=== PATIENT | male | born 1970 | race Caucasian/White ===

== ENCOUNTER 2016-11-06 17:50 | Emergency (ER) | payer OTHER ==
[2016-11-06 22:43] VITALS: BP 129/92
--- NOTE | 2016-11-07 01:10 | ED ---
Lei Lara Angela, scribed for Yadira Lau MD on 11/06/16 at 2212 . Complex/Multi-Sys Presentation - HPI Summary HPI Summary: This pt is a 46 y/o male presenting [facility] c/o confusion since 900 AM today s/ p liquid nitrogen exposure. Pt reports that he works as a [employer] at [place] and was working indoors on a lock with liquid nitrogen in the surrounding. Pt states that he was having trouble fixing a lock and noticed increased confusion. He notes that he was in the room for about 7 hours, from 0800 to 1200 and then from 1300 to 1600 today. Pt reports feeling better now. PMHx: HTN , asthma, anxiety. - History Of Current Complaint Chief Complaint: EDGeneral Time Seen by Provider: 11/06/16 21:40 Hx Obtained From: Patient Onset/Duration: Sudden Onset - s/p liquid nitrogen exposure Timing: Constant Associated Signs And Symptoms: Positive: Confusion. Negative: SOB, Cough, Nausea, Vomiting, Diarrhea - Allergies/Home Medications Allergies/Adverse Reactions: Allergies Allergy/AdvReac Type Severity Reaction Status Date / Time Ibuprofen Allergy See Comment Verified 11/06/16 21:46 PMH/Surg Hx/FS Hx/Imm Hx Cardiovascular History: Reports: Hx Hypertension Respiratory History: Reports: Hx Asthma Psychiatric History: Reports: Hx Anxiety - Immunization History Date of Tetanus Vaccine: unk Date of Influenza Vaccine: none Infectious Disease History: Yes Infectious Disease History: Denies: Traveled Outside the [place] in Last 30 Days - Family History Known Family History: Positive: Hypertension - Social History Occupation: Employed Full-time - [employer] at [place] Lives: With Family - Alcohol Use: Rare Substance Use Type: Reports: None Smoking Status (MU): Never Smoked Tobacco Review of Systems Negative: Fever, Chills Negative: Photophobia, Blurred Vision ENT: Negative Negative: Palpitations, Chest Pain Negative: Shortness Of Breath, Cough Gastrointestinal: Negative Genitourinary: Negative Musculoskeletal: Negative Skin: Negative Neurological: Other - confusion All Other Systems Reviewed And Are Negative: Yes Physical Exam Triage Information Reviewed: Yes Vital Signs On Initial Exam: Initial Vitals Temp Pulse Resp BP Pulse Ox 98.7 F 97 16 147/99 98 11/06/16 18:32 11/06/16 18:32 11/06/16 18:32 11/06/16 18:32 11/06/16 18:32 Vital Signs Reviewed: Yes Appearance: Positive: Well-Appearing, No Pain Distress Skin: Positive: Warm, Skin Color Reflects Adequate Perfusion, Dry Eyes: Positive: EOMI, BREANNA ENT: Positive: Pharynx normal, TMs normal Neck: Positive: Supple, Nontender Respiratory/Lung Sounds: Positive: Clear to Auscultation, Breath Sounds Present. Negative: Rales, Rhonchi, Wheezes Cardiovascular: Positive: RRR. Negative: Murmur, Rub, Other - gallop Abdomen Description: Positive: Nontender, Soft. Negative: Distended, Guarding, Other: - rebound Musculoskeletal: Positive: Strength/ROM Intact. Negative: Edema Left, Edema Right Neurological: Positive: Sensory/Motor Intact, Alert, Oriented to Person Place, Time, CN Intact II-III Psychiatric: Positive: Affect/Mood Appropriate - [place] Coma Scale Coma Scale Total: 15 Diagnostics - Vital Signs Vital Signs Temp Pulse Resp BP Pulse Ox 11/06/16 21:43 98.5 F 79 16 132/93 98 11/06/16 21:14 97.9 F 82 16 140/94 96 11/06/16 19:02 98.5 F 91 14 132/95 97 11/06/16 18:32 98.7 F 97 16 147/99 98 - Laboratory Lab Statement: Any lab studies that have been ordered have been reviewed, and results considered in the medical decision making process. Complex Multi-Symp Course/Dx Course Of Treatment: 46 yo male exposed for 7 hours to nitrogen gas, with some confusion during the day that has resolved. CAse was discussed with poison control who described the gas as a simple asphyxiant and that as long as symptoms had resolved pt was safe to go home. pt was well appearing with stable vital signs - Diagnoses Provider Diagnoses: asphyxia from exposure Discharge - Discharge Plan Condition: Stable Disposition: HOME Patient Education Materials: Acute Delirium (ED) Referrals: Vini Yuan MD [Primary Care Provider] - The documentation as recorded by the Lei membreno Angela accurately reflects the service I personally performed and the decisions made by me, Yadira Lau MD.
== END 2016-11-06 22:42 | disposition home or self-care (01) ==
LOC: ED 17:50
DX: R41.0 Disorientation, unspecified (principal); R09.01 Asphyxia; Z86.79 Personal history of other diseases of the circulatory system
CPT/HCPCS: 99282

== ENCOUNTER 2017-01-28 11:51 | Emergency (ER) | payer BC, OTHER ==
[2017-01-28 12:41] LABS: Hematocrit 42 % (42-52); Hemoglobin 14.2 g/dl (14.0-18.0); Mean Corpuscular HGB Conc 34 g/dl (31-36); Mean Corpuscular Hemoglobin 31 pg (27-31); Mean Corpuscular Volume 90 fL (80-94); Mean Platelet Volume 6 um3 (7.4-10.4); Red Blood Count 4.62 10^6/ul (4.0-5.4); Red Cell Distribution Width 13 % (10.5-15); White Blood Count 11.9 10^3/ul (3.5-10.8)
[2017-01-28 13:03] LABS: Albumin 4.3 g/dL (3.2-5.2); Calcium 9.3 mg/dL (8.6-10.3); EGFR African American 132.5 (>60); Total Bilirubin 0.5 mg/dL (0.2-1.0); Total Protein 7.3 g/dL (6.4-8.9)
--- NOTE | 2017-01-28 13:27 | RAD ---
HISTORY: Chest pain COMPARISONS: November 01, 2012 VIEWS: 4: Frontal dual-energy and lateral views of the chest. FINDINGS: CARDIOMEDIASTINAL SILHOUETTE: The cardiomediastinal silhouette is normal. MELLY: The melly are normal. PLEURA: The costophrenic angles are sharp. No pleural abnormalities are noted. LUNG PARENCHYMA: The lungs are clear. ABDOMEN: The upper abdomen is clear. There is no subphrenic gas. BONES AND SOFT TISSUES: No bone or soft tissue abnormalities are noted. OTHER: None. IMPRESSION: NO ACTIVE CARDIOPULMONARY DISEASE.
[2017-01-28 13:34] LABS: T4 5.64 mcg/mL (6.09-12.23)
[2017-01-28 13:37] LABS: TSH (Thyroid Stimulating Horm) 2.45 mcIU/mL (0.34-5.60)
[2017-01-28 16:24] VITALS: BP 119/80
--- NOTE | 2017-01-29 08:29 | ED ---
Lei Lara Angela, scribed for Wali Ralph MD on 01/28/17 at 1223 . HPI Chest Pain - HPI Summary HPI Summary: This pt is a 46 y/o male [facility] c/o chest pain since today at 10: 30. Pt reports that for the last 4 days he has been experiencing tingling of fingers on left hand. Pt describes his chest pain as an ache and non-radiating. 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 He rates his pain 4/10 in severity. Pt denies nausea, vomiting, diaphoresis, SOB. Pt states he has never had this pain before. PMHx includes asthma, allergies, HTN. He denies any cardiac problems. Pt notes he recently began anti-hypertensive medications 1 week ago. - History of Current Complaint Chief Complaint: EDChestPainROMI Time Seen by Provider: 01/28/17 12:15 Hx Obtained From: Patient Onset/Duration: Started Hours Ago, Atraumatic, Still Present Time of Onset: 10:30 Timing: Constant, Lasting Hours Current Severity: Moderate Pain Intensity: 4 Pain Scale Used: 0-10 Numeric Chest Pain Location: Diffuse Chest Pain Radiates: No Character: Dull/Aching - ache Associated Signs and Symptoms: Positive: Tingling - in left fingers.. Negative : Shortness of Breath, Diaphoresis, Nausea, Vomiting - Allergy/Home Medications Allergies/Adverse Reactions: Allergies Allergy/AdvReac Type Severity Reaction Status Date / Time Ibuprofen Allergy See Comment Verified 11/06/16 21:46 Home Medications: Home Medications Acyclovir* [Zovirax 400 MG TAB*] 400 mg PO DAILY 01/28/17 [History Confirmed 08/09] Loratadine & Pseudoephedrine [Claritin-D 24 Hour 10-240 mg] 1 tab PO DAILY 01/28 [History Confirmed 01/28/17] Ramipril CAP* [Altace CAP*] 1.25 mg PO DAILY 01/28/17 [History Confirmed ] PMH/Surg Hx/FS Hx/Imm Hx Endocrine/Hematology History: Denies: Hx Diabetes Cardiovascular History: Reports: Hx Hypertension Respiratory History: Reports: Hx Asthma Psychiatric History: Reports: Hx Anxiety - Immunization History Date of Tetanus Vaccine: unk Date of Influenza Vaccine: none Infectious Disease History: No Infectious Disease History: Denies: Traveled Outside the US in Last 30 Days - Family History Known Family History: Positive: Cardiac Disease - [place] later in life (not early), Hypertension - Social History Alcohol Use: Rare Substance Use Type: Reports: None Smoking Status (MU): Never Smoked Tobacco Review of Systems Negative: Fever, Chills, Skin Diaphoresis Positive: Chest Pain Negative: Shortness Of Breath Negative: Vomiting, Nausea Positive: Paresthesia - in left fingers All Other Systems Reviewed And Are Negative: Yes Physical Exam - Summary Physical Exam Summary: VITAL SIGNS: Reviewed. GENERAL: Patient is a well-developed and nourished male who is lying comfortable in the stretcher. Patient is not in any acute respiratory distress. HEAD AND FACE: No signs of trauma. No ecchymosis, hematomas or skull depressions. No sinus tenderness. EYES: PERRLA, EOMI x 2, No injected conjunctiva, no nystagmus. EARS: Hearing grossly intact. Ear canals and tympanic membranes are within normal limits. MOUTH: Oropharynx within normal limits. NECK: Supple, trachea is midline, no adenopathy, no JVD, no carotid bruit, no c- spine tenderness, neck with full ROM. CHEST: Symmetric, no tenderness at palpation LUNGS: Clear to auscultation bilaterally. No wheezing or crackles. CVS: Regular rate and rhythm, S1 and S2 present, no murmurs or gallops appreciated. ABDOMEN: Soft, non-tender. No signs of distention. No rebound no guarding, and no masses palpated. Bowel sounds are normal. EXTREMITIES: FROM in all major joints, no edema, no cyanosis or clubbing. NEURO: Alert and oriented x 3. No acute neurological deficits. Speech is normal and follows commands. SKIN: Dry and warm Triage Information Reviewed: Yes Vital Signs On Initial Exam: Initial Vitals Temp Pulse Resp BP Pulse Ox 97.1 F 99 16 137/88 98 01/28/17 11:52 01/28/17 11:52 01/28/17 11:52 01/28/17 11:52 01/28/17 11:52 Vital Signs Reviewed: Yes Diagnostics - Vital Signs Vital Signs Temp Pulse Resp BP Pulse Ox 01/28/17 12:09 96 123/82 97 01/28/17 11:52 97.1 F 99 16 137/88 98 - Laboratory Lab Results: Lab Results 01/28/17 01/28/17 01/28/17 Range/Units 12:31 12:31 12:31 WBC 11.9 H (3.5-10.8) 10^3/ul RBC 4.62 (4.0-5.4) 10^6/ul Hgb 14.2 (14.0-18.0) g/dl Hct 42 (42-52) % MCV 90 (80-94) fL MCH 31 (27-31) pg MCHC 34 (31-36) g/dl RDW 13 (10.5-15) % Plt Count 390 (150-450) 10^3/ul MPV 6 L (7.4-10.4) um3 Neut % (Auto) 86.6 H (38-83) % Lymph % (Auto) 7.0 L (25-47) % Vilas % (Auto) 4.6 (1-9) % Eos % (Auto) 1.2 (0-6) % Baso % (Auto) 0.6 (0-2) % Absolute Neuts (auto) 10.3 H (1.5-7.7) 10^3/ul Absolute Lymphs (auto) 0.8 L (1.0-4.8) 10^3/ul Absolute Monos (auto) 0.5 (0-0.8) 10^3/ul Absolute Eos (auto) 0.1 (0-0.6) 10^3/ul Absolute Basos (auto) 0.1 (0-0.2) 10^3/ul Absolute Nucleated RBC 0 10^3/ul Nucleated RBC % 0 Sodium 133 (133-145) mmol/L Potassium 4.0 (3.5-5.0) mmol/L Chloride 99 L (101-111) mmol/L Carbon Dioxide 28 (22-32) mmol/L Anion Gap 6 (2-11) mmol/L BUN 13 (6-24) mg/dL Creatinine 0.81 (0.67-1.17) mg/dL Est GFR ( Amer) 132.5 (>60) Est GFR (Non-Af Amer) 103.0 (>60) BUN/Creatinine Ratio 16.0 (8-20) Glucose 102 H (70-100) mg/dL Calcium 9.3 (8.6-10.3) mg/dL Total Bilirubin 0.50 (0.2-1.0) mg/dL AST 16 (13-39) U/L ALT 19 (7-52) U/L Alkaline Phosphatase 75 (34-104) U/L CK-MB (CK-2) 2.2 (0.6-6.3) ng/mL Troponin I 0.00 (<0.04) ng/mL B-Natriuretic Peptide 14 ( - 100) pg/mL Total Protein 7.3 (6.4-8.9) g/dL Albumin 4.3 (3.2-5.2) g/dL Globulin 3.0 (2-4) g/dL Albumin/Globulin Ratio 1.4 (1-3) TSH 2.45 (0.34-5.60) mcIU/mL Thyroxine (T4) 5.64 L (6.09-12.23) mcg/mL 01/28/17 Range/Units 15:06 WBC (3.5-10.8) 10^3/ul RBC (4.0-5.4) 10^6/ul Hgb (14.0-18.0) g/dl Hct (42-52) % MCV (80-94) fL MCH (27-31) pg MCHC (31-36) g/dl RDW (10.5-15) % Plt Count (150-450) 10^3/ul MPV (7.4-10.4) um3 Neut % (Auto) (38-83) % Lymph % (Auto) (25-47) % [place] % (Auto) (1-9) % Eos % (Auto) (0-6) % Baso % (Auto) (0-2) % Absolute Neuts (auto) (1.5-7.7) 10^3/ul Absolute Lymphs (auto) (1.0-4.8) 10^3/ul Absolute Monos (auto) (0-0.8) 10^3/ul Absolute Eos (auto) (0-0.6) 10^3/ul Absolute Basos (auto) (0-0.2) 10^3/ul Absolute Nucleated RBC 10^3/ul Nucleated RBC % Sodium (133-145) mmol/L Potassium (3.5-5.0) mmol/L Chloride (101-111) mmol/L Carbon Dioxide (22-32) mmol/L Anion Gap (2-11) mmol/L BUN (6-24) mg/dL Creatinine (0.67-1.17) mg/dL Est GFR ( Amer) (>60) Est GFR (Non-Af Amer) (>60) BUN/Creatinine Ratio (8-20) Glucose (70-100) mg/dL Calcium (8.6-10.3) mg/dL Total Bilirubin (0.2-1.0) mg/dL AST (13-39) U/L ALT (7-52) U/L Alkaline Phosphatase (34-104) U/L CK-MB (CK-2) (0.6-6.3) ng/mL Troponin I 0.00 (<0.04) ng/mL B-Natriuretic Peptide ( - 100) pg/mL Total Protein (6.4-8.9) g/dL Albumin (3.2-5.2) g/dL Globulin (2-4) g/dL Albumin/Globulin Ratio (1-3) TSH (0.34-5.60) mcIU/mL Thyroxine (T4) (6.09-12.23) mcg/mL Result Diagrams: 17 12:31 01/28/17 12:31 Lab Statement: Any lab studies that have been ordered have been reviewed, and results considered in the medical decision making process. - Radiology Chest XR Xray Interpretation: No Acute Changes - IMPRESSION: No active cardiopulmonary disease. ED physician has reviewed this radiology report and agrees. Radiology Interpretation Completed By: Radiologist - EKG 1233 Cardiac Rate: NL EKG Rhythm: Sinus Rhythm - at 97 bpm EKG Interpretation: No ST elevation. Normal axis. Re-Evaluation - Re-Evaluation First Eval Re-Evaluation Time: 15:31 Comment: I discussed the XR and lab results with the pt. Chest Pain Course/Dx - Course Assessment/Plan: This pt is a 46 y/o male presenting to [facility] c/o chest pain since today at 10:30. Pt reports that for the last 4 days he has been experiencing tingling of fingers on left hand. Pt describes his chest pain as an ache and non-radiating. 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 He rates his pain 4/10 in severity. Pt denies nausea, vomiting, diaphoresis, SOB. Pt states he has never had this pain before. PMHx includes asthma, allergies, HTN. He denies any cardiac problems. Pt notes he recently began anti-hypertensive medications 1 week ago. Test results without any significant abnormalities except for WBC of 11.9, thyroxine (T4) of 5.6. Troponin is 0.00 and 4 hours later, troponin 2 is 0.00. Chest XR shows no active cardiopulmonary disease. I have no suspicion for acute coronary syndrome. The pt is feeling better. Therefore, the pt will be discharged home with follow up from his PCP. Pt is hemodynamically stable, alert and oriented x3. - Chest Pain Differential Diagnosis/HQI/PQRI: Acute [place], ACS, Angina, CHF, Chest Wall, GI Disease, Lower Respiratory Infection - Diagnoses Provider Diagnoses: Atypical chest pain Discharge - Discharge Plan Condition: Stable Disposition: HOME Patient Education Materials: Chest Pain (ED) Referrals: Vini Yuan MD [Primary Care Provider] - Additional Instructions: Please follow up with your primary care provider. RETURN TO THE ED FOR ANY WORSENING OR NEW SYMPTOMS. The documentation as recorded by the Lei membreno Angela accurately reflects the service I personally performed and the decisions made by me, Wali Ralph MD.
== END 2017-01-28 16:22 | disposition home or self-care (01) ==
LOC: ED 11:51
DX: R07.89 Other chest pain (principal); R20.2 Paresthesia of skin
CPT/HCPCS: 36415; 71020; 80053; 82553; 83880; 84436; 84443; 84484; 85025; 93005; 99283

== ENCOUNTER 2017-12-25 10:31 | Emergency (ER) | payer OTHER ==
[2017-12-25 10:52] VITALS: BP 135/83
--- NOTE | 2017-12-25 11:31 | UC ---
Hand/Wrist HPI - HPI Summary HPI Summary: 47 yo M c/o pain in L wrist and increased pain w extension of fingers.Pain began suddenly when patient was twisting a chisel against resistance w L hand ( chisel was lodged in the crack of a door. [place] a sudden pop. He has increased tension in the wrist, a swelling, and fingers feel stiff and painful w movement. No change in sensation. Family history non-contributory - History Of Current Complaint Chief Complaint: UCUpperExtremity Stated Complaint: WRIST INJURY Time Seen by Provider: 12/25/17 11:22 Hx Obtained From: Patient Pain Intensity: 4 - Allergies/Home Medications Allergies/Adverse Reactions: Allergies Allergy/AdvReac Type Severity Reaction Status Date / Time ibuprofen [From Motrin] Allergy Difficulty Verified 12/25/17 10:53 Breathing Home Medications: Home Medications Lisinopril 5 mg PO DAILY 12/25/17 [History Confirmed 12/25/17] Mometasone NASAL (NF) 2 spray .ROUTE DAILY 12/25/17 [History Confirmed 12/25/17] PMH/Surg Hx/FS Hx/Imm Hx - Surgical History Surgical History: Yes Surgery Procedure, Year, and Place: hernias x 2 deviated septum - Family History Known Family History: Positive: Cardiac Disease - [place] later in life (not early), Hypertension - Social History Alcohol Use: Rare Substance Use Type: None Smoking Status (MU): Never Smoked Tobacco Review of Systems Musculoskeletal: Decreased ROM Neurological: Negative All Other Systems Reviewed And Are Negative: Yes Physical Exam Triage Information Reviewed: Yes Appearance: Well-Appearing Vital Signs: Initial Vital Signs Temp 98 F 12/25/17 10:49 Pulse 83 12/25/17 10:49 Resp 16 12/25/17 10:49 BP 135/83 12/25/17 10:49 Pulse Ox 99 12/25/17 10:49 Vital Signs Reviewed: Yes Eyes: Positive: Conjunctiva Clear Respiratory: Positive: No respiratory distress, No accessory muscle use Musculoskeletal: Positive: ROM Intact, Other: - L hand, increased pain w extension of wrist and fingers. soft-tissue bulge seen on flexor surface of wrist, mildly TTP Neurological: Positive: Alert, Muscle Tone Normal Skin Exam: Normal Hand/Wrist Course/Dx - Differential Dx/Diagnosis Differential Diagnosis/HQI/PQRI: Other - ligament tear, tendor tear, sprain, strain Provider Diagnoses: soft tissue injury Discharge - Sign-Out/Discharge Documenting (check all that apply): Patient Departure All imaging exams completed and their final reports reviewed: No Studies - Discharge Plan Condition: Stable Disposition: HOME Patient Education Materials: Sprain (ED), Tendon Rupture (ED) Referrals: Kirk Jerry NP [Primary Care Provider] - Additional Instructions: Speak with your PCP for a referral to an Orthopedist, or schedule an appointment directly with an orthopedist yourself - Billing Disposition and Condition Condition: STABLE Disposition: Home
== END 2017-12-25 11:45 | disposition home or self-care (01) ==
LOC: UCEAST 10:31
DX: S69.92XA Unspecified injury of left wrist, hand and finger(s), initial encounter (principal); X50.1XXA Overexertion from prolonged static or awkward postures, initial encounter; Y92.9 Unspecified place or not applicable; Z88.6 Allergy status to analgesic agent
CPT/HCPCS: 99211; G0463

== ENCOUNTER 2017-12-26 11:16 | Emergency (ER) | payer OTHER ==
[2017-12-26 13:05] VITALS: BP 128/87
--- NOTE | 2017-12-26 13:08 | ED ---
Upper Extremity Pain - HPI Summary HPI Summary: Patient is a 47-year-old male presenting to the ED with left wrist ecchymosis since yesterday. He was seen in urgent care after an injury yesterday. He states the injury occurred while at work as he was trying to take off a deadbolt and extended his wrist now complaining of volar surface wrist pain and ecchymosis with intermittent tingling to the fingertips sparing the thumb. He is also endorsing ecchymosis to the little finger which was not present yesterday. He was diagnosed with a soft tissue injury yesterday while at the [facility]. He is allergic to ibuprofen and has not been taking anything [id number] for relief. He has been icing daily. He any pain with flexion or extension of the wrist, denies any pain with flexion or extension of the fingers. He was more concerned with numbness and tingling on this date as well as ecchymosis. - History of Current Complaint Chief Complaint: EDExtremityUpper Stated Complaint: LT HAND INJURY Time Seen by Provider: 12/26/17 11:29 Hx Obtained From: Patient Mechanism Of Injury: Other - hyperextension of the hand/wrist Onset/Duration: Started Hours Ago Timing: Constant Severity Initially: Moderate Severity Currently: Mild Aggravating Factor(s): Nothing Alleviating Factor(s): Nothing Associated Signs & Symptoms: Positive: Bruising, Numbness/Tingling - Allergies/Home Medications Allergies/Adverse Reactions: Allergies Allergy/AdvReac Type Severity Reaction Status Date / Time ibuprofen [From Motrin] Allergy Difficulty Verified 12/25/17 10:53 Breathing PMH/Surg Hx/FS Hx/Imm Hx Previously Healthy: Yes Endocrine/Hematology History: Denies: Hx Diabetes Cardiovascular History: Reports: Hx Hypertension - on meds Respiratory History: Reports: Hx Asthma Psychiatric History: Reports: Hx Anxiety - Surgical History Surgery Procedure, Year, and Place: hernias x 2 deviated septum - Immunization History Date of Tetanus Vaccine: unk Date of Influenza Vaccine: none Hx Pertussis Vaccination: No Immunizations Up to Date: Yes Infectious Disease History: No Infectious Disease History: Denies: Traveled Outside the [place] in Last 30 Days - Family History Known Family History: Positive: Cardiac Disease - [place] later in life (not early), Hypertension - Social History Occupation: Employed Full-time Lives: With Family Alcohol Use: Rare Hx Substance Use: No Substance Use Type: Reports: None Hx Tobacco Use: No Smoking Status (MU): Never Smoked Tobacco Review of Systems Constitutional: Negative Negative: Fever, Chills, Fatigue, Skin Diaphoresis Negative: Palpitations, Chest Pain Negative: Shortness Of Breath, Cough Genitourinary: Negative Positive: no symptoms reported, see HPI Negative: Arthralgia, Myalgia Positive: Bruising - to the volar surface of the wrist Neurological: Negative All Other Systems Reviewed And Are Negative: Yes Physical Exam Triage Information Reviewed: Yes Vital Signs On Initial Exam: Initial Vitals Temp Pulse Resp BP Pulse Ox 97 F 97 18 138/85 97 12/26/17 11:25 12/26/17 11:25 12/26/17 11:25 12/26/17 11:25 12/26/17 11:25 Vital Signs Reviewed: Yes Appearance: Positive: Well-Appearing, Well-Nourished Skin: Positive: Warm, Skin Color Reflects Adequate Perfusion, Other - ecchymosis to the volar side of the wrist and palmar side of the little finger of the left hand Head/Face: Positive: Normal Head/Face Inspection Eyes: Positive: EOMI, BREANNA, Conjunctiva Clear Neck: Positive: Supple, No Lymphadenopathy Respiratory/Lung Sounds: Positive: Clear to Auscultation, Breath Sounds Present Cardiovascular: Positive: RRR, Pulses are Symmetrical in both Upper and Lower Extremities Musculoskeletal: Positive: Strength/ROM Intact Neurological: Positive: Sensory/Motor Intact, Alert, Oriented to Person Place, Time, Speech Normal Psychiatric: Positive: Affect/Mood Appropriate AVPU Assessment: Alert Diagnostics - Vital Signs Vital Signs Temp Pulse Resp BP Pulse Ox 12/26/17 11:25 97 F 97 18 138/85 97 - Laboratory Lab Statement: Any lab studies that have been ordered have been reviewed, and results considered in the medical decision making process. Course/Dx - Course Course Of Treatment: On physical examination, patient has full range of motion without pain of the wrist. He also has full range of motion of all fingertips. There is no nodularities no pain to the flexor tendon. No pain to the DIP or PIP joints of the ipsilateral hand. Strength and range of motion as well as resisted flexion and extension equal to both the left of the right hand. The apparent injury was a wrist hyperextension, however patient has no pain on palpation to the metacarpal bones. Patient denies any forceful deviation, traction or rotation of the wrist. This injury appears to be a ligamentous stress or tendon injury/ sprain causing some fluid retention and ecchymosis. I have discussed following up with a hand surgeon early next week. Since he denies any pain or limitations with range of motion, he is not given a brace at this time. - Diagnoses Differential Diagnosis/HQI/PQRI: Positive: Other - hyperextension wrist, ligamentous sprain, tendon injury, sprain, strain, eccymosis, swelling, soft tissue injury Provider Diagnoses: Hyperextension of joint of left hand Discharge - Sign-Out/Discharge Documenting (check all that apply): Patient Departure - Discharge Plan Condition: Stable Disposition: HOME Forms: *Work Release Referrals: Kirk Jerry [employer]ELOPER [Primary Care Provider] - Nidhi Huizar MD [Medical Doctor] - Additional Instructions: Please call Dr. Huizar on Thursday if symptoms persist or worsen Tylenol 650 mg 3 times daily for any discomfort and swelling Ice to the area as much as possible - Billing Disposition and Condition Condition: STABLE Disposition: Home
== END 2017-12-26 13:03 | disposition home or self-care (01) ==
LOC: ED 11:16
DX: S63.92XA Sprain of unspecified part of left wrist and hand, initial encounter (principal); S60.222A Contusion of left hand, initial encounter; X50.9XXA Other and unspecified overexertion or strenuous movements or postures, initial encounter; Y92.9 Unspecified place or not applicable; Y99.0 Civilian activity done for income or pay; I10 Essential (primary) hypertension; Z88.6 Allergy status to analgesic agent
CPT/HCPCS: 99282

== ENCOUNTER 2019-04-12 08:17 | Day surgery (SDC) | payer OTHER ==
--- NOTE | 2019-04-06 15:30 | HP ---
PREOPERATIVE HISTORY AND PHYSICAL: DATE OF SURGERY/ADMISSION: 04/12/19 DATE OF OFFICE VISIT/ENCOUNTER: 04/06/19 ATTENDING SURGEON: Nidhi Greene MD * (DICTATED BY VIKI GRAYSON) PROCEDURE: Left wrist carpal tunnel release. 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 He has had problems with pain and development of other symptoms in his left hand since the work-related injury on 12/25/17. He has been treated for some tendinitis in the past, but has had some persistent problems. More recently, starting the beginning of this year, he has had trouble at work using his hand, particularly for fine movements because of numbness and tingling in the hand. In the past, he has had treatment with cortisone injection and bracing, but these symptoms persist. He had an EMG nerve conduction study performed that was read as normal, but clinically he continues to present with carpal tunnel syndrome. He is interested in pursuing surgical intervention for this problem at this time PAST MEDICAL HISTORY: 1. Asthma. 2. Anxiety/depression. PAST SURGICAL HISTORY: 1. Hernia repair. 2. Surgery for deviated septum. CURRENT MEDICATIONS: 1. Acyclovir 400 mg daily. 2. Advair Diskus 1 puff twice a day. 3. Claritin D one tablet daily. 4. Fluoxetine HCL 20 mg 3 tabs daily. 5. Proventil inhaler 2 puffs 4 times a day p.r.n. 6. Blood pressure medication name unknown. ALLERGIES: IBUPROFEN aggravates his asthma symptoms. FAMILY HISTORY: Noncontributory. SOCIAL HISTORY: The patient is employed as a deputy [employer] at [employer]. He denies tobacco use and recreational drug use. He drinks alcohol on occasion. REVIEW OF SYSTEMS: Negative for general, cephalic, cardiovascular, respiratory , GI, other musculoskeletal, integumentary, endocrine, neurologic and hematologic symptoms. Infectious disease is negative for MRSA, hepatitis C, HIV. PHYSICAL EXAMINATION GENERAL: Well-developed, well-nourished 49-year-old male, in on acute distress. VITAL SIGNS: Height 5 feet 9 inches, weight 209 pounds, pulse rate 72, blood pressure 118/80. HEENT: Normocephalic, atraumatic. Pupils are equal, round and reactive to light and accommodation. Extraocular movements are intact. NECK: Supple. No palpable lymph nodes. Throat is clear. PULMONARY: Lungs are clear to auscultation bilaterally. No wheezes, rales or rhonchi. CARDIOVASCULAR: Regular rate and rhythm. S1, S2. No murmurs, rubs or gallop. No edema. ABDOMEN: Positive bowel sounds, soft, nontender. MUSCULOSKELETAL: On exam of his left hand and wrist, there is no erythema or ecchymosis. He has full wrist range of motion with no pain. There is mild atrophy at the thenar eminence. Positive Tinel's singe, Phalen's test and median nerve compression test. Sensation is intact to light touch throughout the hand NEUROLOGIC: Alert and oriented x3. Cranial nerves II through XII are intact. IMPRESSION: Left carpal tunnel syndrome PLAN: The patient is scheduled to undergo a left wrist carpal tunnel with Dr. Greene on 04/12/19. He will return to the office in 10 days postop for followup and suture removal. A prescription for Tylenol No.3 was e-scribed to the patient's pharmacy for postoperative pain management. VIKI GRAYSON [id number]/[facility] #: [id number] HIRAM
[~2019-04-12 08:17] MED LIST: Acetaminophen TAB* 325 MG ONE; Acetaminophen TAB* 325 MG PO ONE; Buffered Lidocaine 1% SYRIN* 1 ML/SYRINGE INTRADERM ONE; Famotidine IV* 10 MG/ML 2 ML (20 mg) IV ONE; Famotidine IV* 10 MG/ML 2 ML (20 mg) ONE; Lactated Ringers 1000 ML Bag* 1,000 ML IV SCH
[2019-04-12] MEDS ORDERED: Midazolam* 1 MG/ML 5 ML VIAL (5 MG) ONE (10:17)
[2019-04-12] MEDS ORDERED: Lidocaine 1% INJ* 10 MG/ML 30 ML SDV ONE (10:36)
[2019-04-12] MEDS ORDERED: Lidocaine 2% PF * 5 ML VIAL ONE (11:02)
[2019-04-12] MEDS ORDERED: Ondansetron INJ* 2 MG/ML VIAL ONE (11:02)
[2019-04-12] MEDS ORDERED: Propofol* 10 MG/ML 20 ML BTL ONE (11:02)
[2019-04-12 11:31] VITALS: BP 110/70
--- NOTE | 2019-04-13 00:53 | OP ---
DATE OF OPERATION: 04/12/19 [facility] DATE OF : 72 SURGEON: Nidhi Greene MD GUIDE: VIKI Cabral ANESTHESIA: Local MAC. PRE-OP DIAGNOSIS: Left carpal tunnel syndrome. POST-OP DIAGNOSIS: Left carpal tunnel syndrome. OPERATIVE PROCEDURE: Left carpal tunnel release. ESTIMATED BLOOD LOSS: Zero. TOURNIQUET TIME: About 10 minutes. INDICATIONS FOR PROCEDURE: Rosendo is a 49-year-old male who has numbness and tingling in the median nerve distribution of his left hand. He presents for left carpal tunnel release. DESCRIPTION OF PROCEDURE: The patient was brought to the operating room and was given a sedation anesthetic and a local infiltration of 10 cc of 1% plain lidocaine in the palm of his left hand. The skin of his left hand and forearm was prepped and draped in the usual sterile fashion. The hand and forearm were exsanguinated and the tourniquet elevated to 250 mmHg. A longitudinal incision was made in the palm in line with the ring finger. We dissected through the subcutaneous tissue down to the transverse carpal ligament. The ligament was divided sharply with a knife and then more proximally with the scissors. The nerve was dissected free from the surrounding tissue and there was an area of moderate compression at the midportion of the ligament. The wound was copiously irrigated with saline and then the skin edges were reapproximated with 4-0 nylon suture. The wound was dressed with Xeroform, 4x4, Webril, and an Krishna wrap. The patient tolerated the procedure well and was brought to the recovery room in good condition. [id number]/[facility] #: [id number] [facility]
== END 2019-04-12 11:45 | disposition home or self-care (01) ==
LOC: OREAST 08:17
PROVIDERS: ATTEND Orthopaedic Surgery
DX: G56.02 Carpal tunnel syndrome, left upper limb (principal); F41.8 Other specified anxiety disorders; J45.909 Unspecified asthma, uncomplicated; I10 Essential (primary) hypertension; Z79.51 Long term (current) use of inhaled steroids; Z88.6 Allergy status to analgesic agent
CPT/HCPCS: A9270-GY; J2250; J2405; J2704